=== PATIENT | male | born 1980 | race African-American/Black ===

== ENCOUNTER 2020-07-13 15:33 | Emergency (ER) | payer OTHER ==
[~2020-07-13] VITALS: Ht 167.6 cm; Wt 77.3 kg
[2020-07-13 15:33] VITALS: BP 136/80
--- NOTE | 2020-07-13 16:21 | REP ---
INDICATION: pain;swelling COMPARISON: None. TECHNIQUE: Four views right ankle. FINDINGS: There is an avulsion fracture of the medial malleolus of indeterminate age. There does not appear to be soft tissue swelling in this region radiographically. Ankle mortise is anatomic. IMPRESSION: Avulsion fracture medial malleolus of indeterminate age without soft tissue swelling in that region. <Electronically signed by Patrick Martines > 07/13/20 [id number]
--- NOTE | 2020-07-13 16:29 | REP ---
INDICATION: trauma, pain over 5th MT COMPARISON: None. TECHNIQUE: Four views right foot. FINDINGS: There is no evidence of acute fracture, dislocation, or intrinsic bone disease.There is an old avulsion fracture of the medial malleolus. IMPRESSION: No fracture or dislocation. There is an old avulsion fracture of the medial malleolus. <Electronically signed by Patrick Martines > 07/13/20 [id number]
== END 2020-07-13 17:13 | disposition home or self-care (01) ==
LOC: M ED 15:33
DX: S82.54XB Nondisplaced fracture of medial malleolus of right tibia, initial encounter for open fracture type I or II (principal); S93.401A Sprain of unspecified ligament of right ankle, initial encounter; X50.1XXA Overexertion from prolonged static or awkward postures, initial encounter; Y92.89 Other specified places as the place of occurrence of the external cause; Y93.89 Activity, other specified; Y99.1 Military activity

== ENCOUNTER 2021-01-29 10:25 | Emergency (ER) | payer OTHER ==
[~2021-01-29] VITALS: Ht 167.6 cm; Wt 82.9 kg
--- OUTSIDE RECORDS SUMMARY | 2021-01-29 10:30 | CCD ---
Author Author [facility] Address Unknown Phone Unavailable Support Name Relationship Address Phone [facility] Next Of Kin [address] [place] [address] Unavailable KELL STARR Next Of Kin [place], [place] [id number] Re-disclosure Warning The records that you are about to access may contain information from federally-assisted alcohol or drug abuse programs. If such information is present, then the following federally mandated warning applies: This information has been disclosed to you from records protected by federal confidentiality rules (42 CFR part 2). The federal rules prohibit you from making any further disclosure of this information unless further disclosure is expressly permitted by the written consent of the person to whom it pertains or as otherwise permitted by 42 CFR part 2. A general authorization for the release of medical or other information is NOT sufficient for this purpose. The Federal rules restrict any use of the information to criminally investigate or prosecute any alcohol or drug abuse patient.The records that you are about to access may contain highly sensitive health information, the redisclosure of which is protected by Article 27-F of the [facility] Public Health law. If you continue you may have access to information: Regarding HIV / AIDS; Provided by facilities licensed or operated by the [facility] Office of Mental Health; or Provided by the [facility] Office for People With Developmental Disabilities. If such information is present, then the following [facility] mandated warning applies: This information has been disclosed to you from confidential records which are protected by state law. State law prohibits you from making any further disclosure of this information without the specific written consent of the person to whom it pertains, or as otherwise permitted by law. Any unauthorized further disclosure in violation of state law may result in a fine or penitentiary sentence or both. A general authorization for the release of medical or other information is NOT sufficient authorization for further disc losure. Immunizations Vaccine Date Status Description Data Source(s) INFLUENZA VIRUS VACCINE QUADRIVALENT (6 MOS AN D UP) 05/04/2020 12:00:00 AM EST completed [facility] Medications No Information Insurance Providers Payer name Policy type / Coverage type Policy ID Covered green party ID Covered green party's relationship to tucker Policy Tucker Plan Information [facility] [employer] [id number] Problems, Conditions, and Diagnoses No Information Surgeries/Procedures No Information Results No Information Social History No Information
[2021-01-29] MEDS ORDERED: IBUP200C27 PO (10:39)
[2021-01-29] MEDS ORDERED: NS 1,000 ML IV ONE (12:05)
[2021-01-29] MEDS ORDERED: KETOROLAC 30 MG/ML 1ML VIAL IV ONE (12:05)
[2021-01-29] MEDS ORDERED: ONDANSETRON 4MG/2ML VIAL IV ONE (12:05)
--- OUTSIDE RECORDS SUMMARY | 2021-01-29 12:15 | CCD ---
Author Author [facility] Address Unknown Phone Unavailable Support Name Relationship Address Phone [facility] Next Of Kin [address] [address] Unavailable KELL STARR Next Of Kin [place], [place] [phone] Re-disclosure Warning The records that you are [...] is protected by Article 27-F of the [facility] Public Health law. If you continue you may have access to information: Regarding HIV / AIDS; Provided by facilities licensed or operated by the [facility] Office of Mental Health; or Provided by the [facility] Office for People With Developmental Disabilities. If such information is present, then the following [facility] mandated warning applies: This information has [...] law may result in a fine or long term sentence or both. A general authorization for the release of medical or other information is NOT sufficient authorization for further disc losure. Immunizations Vaccine Date Status Description Data Source(s) INFLUENZA VIRUS VACCINE QUADRIVALENT (6 MOS AN D UP) 05/04/2020 12:00:00 AM EST completed [facility] Medications No Information Insurance Providers Payer name Policy type / Coverage type Policy ID Covered democrat ID Covered democrat's relationship to tucker Policy Tucker Plan Information [facility] [employer] [id number] Problems, Conditions, and Diagnoses No Information Surgeries/Procedures No Information Results No Information Social History No Information
--- NOTE | 2021-01-29 12:37 | REP ---
INDICATION: headaches/worst. COMPARISON: None. TECHNIQUE: CT brain performed in the axial plane. Coronal reconstruction images are performed. FINDINGS: The ventricles are normal in size and position.. There is no midline shift or mass effect. Martines-white differentiation is well maintained. There is no acute intracranial hemorrhage or extra-axial fluid collection. Bone window examination is unremarkable. The visualized mastoid air cells and paranasal sinuses are clear. IMPRESSION: Negative noncontrast CT brain. <Electronically signed by Patrick Martines > 01/29/21 [id number]
[2021-01-29 12:50] LABS: BASO % 0.7 % (0.0-1.0); EOS # 0.1 10^3/uL (0.0-0.5); HEMATOCRIT 42.8 % (42.0-52.0); HEMOGLOBIN 14.6 g/dl (13.5-17.5); LYMPH # 1.9 10^3/uL (1.5-5.0); LYMPH % 41.1 % (24.0-44.0); MEAN CORPUSCULAR HEMOGLOBIN 31.1 pg (27.0-33.0); MEAN CORPUSCULAR HGB CONC 34.1 g/dl (32.0-36.5); MEAN CORPUSCULAR VOLUME 91.1 fl (80.0-96.0); MONO # 0.4 10^3/uL (0.0-0.8); MONO % 8.6 % (2.0-8.0); NEUTROPHILS # 2.2 10^3/uL (1.5-8.5); NEUTROPHILS % 47.4 % (36.0-66.0); PLATELET COUNT, AUTOMATED 172 10^3/uL (150-450); WHITE BLOOD COUNT 4.6 10^3/uL (4.0-10.0)
[2021-01-29 13:22] LABS: ALBUMIN 4.2 GM/DL (3.2-5.2); ALT/SGPT 50 U/L (12-78); BILIRUBIN,DIRECT 0.1 MG/DL (0.0-0.2); BILIRUBIN,TOTAL 0.5 MG/DL (0.2-1.0); ERYTHROCYTE SEDIMENTATION RATE 6 mm/hr (0-15); LIPASE 148 U/L (73-393); TOTAL PROTEIN 7.9 GM/DL (6.4-8.2)
[2021-01-29 13:38] LABS: BLOOD UREA NITROGEN 14 MG/DL (7-18); CALCIUM LEVEL 9.4 MG/DL (8.5-10.1); CARBON DIOXIDE LEVEL 26 MEQ/L (21-32); CHLORIDE LEVEL 107 MEQ/L (98-107); CREATININE FOR GFR 1.06 MG/DL (0.70-1.30); GLOMERULAR FILTRATION RATE > 60.0 (>60); GLUCOSE, FASTING 88 MG/DL (70-100); POTASSIUM SERUM 3.9 MEQ/L (3.5-5.1); SODIUM LEVEL 139 MEQ/L (136-145)
[2021-01-29 14:04] VITALS: BP 120/70
== END 2021-01-29 14:09 | disposition home or self-care (01) ==
LOC: M ED 10:25
DX: G43.909 Migraine, unspecified, not intractable, without status migrainosus (principal); Z87.828 Personal history of other (healed) physical injury and trauma
CPT/HCPCS: 70450; 80047; 80048; 80076; 83690; 85025; 85652; 86140; 96374; 96375; 99284; J1885; J2405

== ENCOUNTER → 2021-10-17 | Outpatient (CLI) | payer OTHER ==
[~2021-10-17] MED LIST: IBUP200C27 PO
[2021-10-17 17:24] LABS: BASO % 0.6 % (0.0-1.0); EOS # 0.2 10^3/uL (0.0-0.5); HEMATOCRIT 43.3 % (42.0-52.0); HEMOGLOBIN 14.4 g/dl (13.5-17.5); LYMPH # 2.4 10^3/uL (1.5-5.0); LYMPH % 45.8 % (24.0-44.0); MEAN CORPUSCULAR HEMOGLOBIN 30.5 pg (27.0-33.0); MEAN CORPUSCULAR HGB CONC 33.3 g/dl (32.0-36.5); MEAN CORPUSCULAR VOLUME 91.7 fl (80.0-96.0); MONO # 0.5 10^3/uL (0.0-0.8); NEUTROPHILS # 2.2 10^3/uL (1.5-8.5); NEUTROPHILS % 40.4 % (36.0-66.0); PLATELET COUNT, AUTOMATED 179 10^3/uL (150-450); RED BLOOD COUNT 4.72 10^6/uL (4.30-6.10); WHITE BLOOD COUNT 5.3 10^3/uL (4.0-10.0)
[2021-10-17 18:03] LABS: ALBUMIN 4.2 GM/DL (3.2-5.2); ALT/SGPT 49 U/L (12-78); BILIRUBIN,TOTAL 0.7 MG/DL (0.2-1.0); BLOOD UREA NITROGEN 13 MG/DL (7-18); CALCIUM LEVEL 9.4 MG/DL (8.5-10.1); CARBON DIOXIDE LEVEL 26 MEQ/L (21-32); CHLORIDE LEVEL 107 MEQ/L (98-107); CREATININE FOR GFR 1.17 MG/DL (0.70-1.30); GLOMERULAR FILTRATION RATE > 60.0 (>60); GLUCOSE, FASTING 89 MG/DL (70-100); POTASSIUM SERUM 4.3 MEQ/L (3.5-5.1); SODIUM LEVEL 140 MEQ/L (136-145); VALPROIC ACID (DEPAKOTE) < 3.0 UG/ML (50.0-100.0)
== END ==
LOC: M PLALAB 16:18
PROVIDERS: ATTEND Psychiatry & Neurology Neurology
DX: R51.9 Headache, unspecified (principal)

== ENCOUNTER 2022-02-05 13:03 | Day surgery (SDC) | payer OTHER ==
[~2022-02-05] VITALS: Ht 167.6 cm; Wt 83.5 kg
[~2022-02-05 13:03] MED LIST changes: +DIVA1TAB48 PO; +NS 1,000 ML IV ONE
[2022-02-05] MEDS ORDERED: propofoL 200 MG/20 ML VIAL As Ordered ONE (14:57)
[2022-02-05] MEDS ORDERED: LIDOCAINE 2% 100MG/5ML SDV (FOR ANES.) As Ordered ONE (14:57)
[2022-02-05 15:39] VITALS: BP 137/88
== END 2022-02-05 15:58 | disposition home or self-care (01) ==
LOC: M OPP 13:03
PROVIDERS: ATTEND Surgery
DX: K29.80 Duodenitis without bleeding (principal); K31.89 Other diseases of stomach and duodenum; K30 Functional dyspepsia; K44.9 Diaphragmatic hernia without obstruction or gangrene; Z79.1 Long term (current) use of non-steroidal anti-inflammatories (NSAID); Z79.899 Other long term (current) drug therapy; F32.9 Major depressive disorder, single episode, unspecified; G43.909 Migraine, unspecified, not intractable, without status migrainosus; R73.09 Other abnormal glucose

== ENCOUNTER → 2022-02-07 | Outpatient (CLI) | payer OTHER ==
[~2022-02-07] MED LIST changes: -NS 1,000 ML IV ONE
[2022-02-07 15:00] LABS: PLATELET COUNT, AUTOMATED 213 10^3/uL (150-450)
[2022-02-07 15:18] LABS: INR 0.93; PROTHROMBIN TIME 12.6 SECONDS (12.5-14.5)
[2022-02-07 15:19] LABS: PARTIAL THROMBOPLASTIN TIME 23.4 SECONDS (24.8-34.2)
[2022-02-07 15:33] LABS: COLLAGEN EPINEPHRINE 88 SECONDS (74-162)
== END ==
LOC: M LAB 14:39
PROVIDERS: ATTEND Physical Medicine & Rehabilitation
DX: M51.37 Other intervertebral disc degeneration, lumbosacral region (principal)

== ENCOUNTER → 2022-02-20 | Outpatient (CLI) | payer OTHER | LOC: M LAB 11:52 | PROVIDERS: ATTEND Physician Assistant | DX: K31.89 Other diseases of stomach and duodenum (principal) ==

== ENCOUNTER → 2022-03-04 | Outpatient (CLI) | payer OTHER ==
[2022-03-04 15:05] LABS: BASO % 0.7 % (0.0-1.0); EOS # 0.1 10^3/uL (0.0-0.5); EOS % 3.1 % (0.0-3.0); HEMATOCRIT 45.1 % (42.0-52.0); LYMPH # 1.9 10^3/uL (1.5-5.0); LYMPH % 45.8 % (24.0-44.0); MEAN CORPUSCULAR HEMOGLOBIN 30.6 pg (27.0-33.0); MEAN CORPUSCULAR HGB CONC 33.3 g/dl (32.0-36.5); MONO # 0.3 10^3/uL (0.0-0.8); MONO % 6.1 % (2.0-8.0); NEUTROPHILS # 1.8 10^3/uL (1.5-8.5); NEUTROPHILS % 44.1 % (36.0-66.0); PLATELET COUNT, AUTOMATED 160 10^3/uL (150-450); WHITE BLOOD COUNT 4.1 10^3/uL (4.0-10.0)
[2022-03-04 15:32] LABS: RHEUMATOID FACTOR QUANT < 3.5 IU/ML (<14)
[2022-03-04 15:47] LABS: URIC ACID 4.8 MG/DL (3.7-9.2)
[2022-03-04 15:48] LABS: ERYTHROCYTE SEDIMENTATION RATE 7 mm/hr (0-15)
== END ==
LOC: M LAB 14:21
PROVIDERS: ATTEND Physician Assistant Surgical
DX: M54.16 Radiculopathy, lumbar region (principal)

== ENCOUNTER → 2022-07-02 | Outpatient (CLI) | payer OTHER | LOC: M RAD 13:30 | PROVIDERS: ATTEND Nurse Practitioner | DX: N41.0 Acute prostatitis (principal); N50.811 Right testicular pain ==

== ENCOUNTER 2022-11-15 10:23 | Emergency (ER) | payer OTHER ==
[~2022-11-15] VITALS: Ht 167.6 cm; Wt 87.1 kg
[2022-11-15] MEDS ORDERED: FLUO20CA22 (11:06)
[2022-11-15] MEDS ORDERED: GABA-282 (11:06)
[2022-11-15] MEDS ORDERED: HYDR-3363 (11:06)
[2022-11-15] MEDS ORDERED: PANT40TA29 (11:06)
[2022-11-15] MEDS ORDERED: NAPR-837 PO (15:11)
[2022-11-15] MEDS ORDERED: NAPR-885 PO (15:16)
[2022-11-15 15:24] VITALS: BP 133/68; TEMP 97.6; O2SAT 98
== END 2022-11-15 15:25 | disposition home or self-care (01) ==
LOC: M ED 10:23
DX: M76.61 Achilles tendinitis, right leg (principal); M76.62 Achilles tendinitis, left leg; M72.2 Plantar fascial fibromatosis; K21.9 Gastro-esophageal reflux disease without esophagitis; G43.909 Migraine, unspecified, not intractable, without status migrainosus; M54.9 Dorsalgia, unspecified; G89.29 Other chronic pain; Z79.899 Other long term (current) drug therapy